=== PATIENT | female | born 1990 | race Caucasian/White ===

== ENCOUNTER 2025-07-05 15:28 | Emergency (ER) | payer SELFPAY ==
[~2025-07-05] VITALS: Ht 167.6 cm; Wt 56.0 kg
[2025-07-05 15:36] VITALS: BP 120/70; PULSE 120; RESP 16; TEMP 98.3; O2SAT 100
== END 2025-07-05 18:22 | disposition home or self-care (01) ==
LOC: ER 15:28
DX: T41.291A Poisoning by other general anesthetics, accidental (unintentional), initial encounter (principal); Y92.89 Other specified places as the place of occurrence of the external cause
CPT/HCPCS: 99283